=== PATIENT | female | born 1980 ===

== ENCOUNTER 2023-06-18 12:45 | Inpatient (IN) | payer OTHER ==
[~2023-06-18] VITALS: Ht 162.6 cm; Wt 95.3 kg
[2023-06-18 14:56] LABS: HEMATOCRIT 35.4 % (36.0-45.00); HEMOGLOBIN 11.6 g/dL (12.0-15.00); MEAN CELL VOLUME 83.7 fL (80.00-100.00); MEAN CORPUSCULAR HEMOGLOBIN 27.5 pg (27.00-32.0); MEAN CORPUSCULAR HGB CONC 32.9 g/dl (32.0-36.0); PLATELET COUNT 243 K/uL (150-450); RED BLOOD COUNT 4.22 M/uL (4.00-6.00); RED CELL DISTRIBUTION WIDTH 13.2 % (11.5-14.5)
[2023-06-18 15:25] LABS: INR < 0.93; PARTIAL THROMBOPLASTIN TIME 28.2 SECONDS (22.0-34.0); PROTHROMBIN TIME 9.6 SECONDS (9.0-11.5)
[2023-06-18 15:37] LABS: ALBUMIN 2.9 gm/dL (3.4-5.0); BILIRUBIN TOTAL 0.23 mg/dL (0.3-1.2); CALCIUM 9.5 mg/dL (8.5-10.1); CREATININE SERUM 0.48 mg/dL (0.55-1.02); GFR 140.5; GLOBULINA 4.1 G/DL (2.4-3.5); POTASSIUM 4.8 mEq/L (3.5-5.1)
[2023-06-18 15:37] LABS: URINE APPEARANCE Turbid; URINE BILIRRUBIN Negative (NEGATIVE); URINE BLOOD Negative; URINE COLOR Yellow; URINE GLUCOSE Negative (NEGATIVE); URINE LEUKOCYTE Trace; URINE NITRATE Negative; URINE PROTEIN Negative (NEGATIVE)
[2023-06-18 15:40] LABS: URINE BACTERIA 1893.7 uL (0.0-1933); URINE EPITHELIAL CELLS 122.1 uL (0.0-38.8); URINE RBC 20.9 uL (0.0-20.8); URINE WBC 19.4 uL (0.0-23.2)
[2023-06-23] MEDS ORDERED: CEFAZOLIN SODIUM 1,000 MG VIAL IV SCH (08:00)
[2023-06-23 08:13] LABS: URINE APPEARANCE Clear; URINE BILIRRUBIN Negative (NEGATIVE); URINE BLOOD Trace; URINE COLOR Yellow; URINE GLUCOSE Negative (NEGATIVE); URINE LEUKOCYTE Negative; URINE NITRATE Negative; URINE PROTEIN Negative (NEGATIVE); URINE UROBILINOGEN 0.2 E.U./dl
[2023-06-23 08:15] LABS: HEMATOCRIT 35.3 % (36.0-45.00); HEMOGLOBIN 11.5 g/dL (12.0-15.00); MEAN CELL VOLUME 82.9 fL (80.00-100.00); MEAN CORPUSCULAR HEMOGLOBIN 26.9 pg (27.00-32.0); MEAN CORPUSCULAR HGB CONC 32.4 g/dl (32.0-36.0); PLATELET COUNT 229 K/uL (150-450); RED BLOOD COUNT 4.26 M/uL (4.00-6.00); RED CELL DISTRIBUTION WIDTH 13.5 % (11.5-14.5)
[2023-06-23] MEDS ORDERED: RINGERS SOLUTION,LACTATED 1,000 ML IV SCH (08:15)
[2023-06-23] MEDS ORDERED: ERYTHROMYCIN BASE 1 GM TUBE OP ONE (08:15)
[2023-06-23] MEDS ORDERED: OXYTOCIN 10 UNITS/ML VIAL IV ONE (08:15)
[2023-06-23 08:16] LABS: URINE BACTERIA 1321.6 uL (0.0-1933); URINE RBC 14.2 uL (0.0-20.8); URINE WBC 5.4 uL (0.0-23.2)
[2023-06-23] MEDS ORDERED: ERYTHROMYCIN BASE 3.5 GM OINT...G. OP ONE (08:26)
[2023-06-23 08:42] LABS: ALBUMIN 2.9 gm/dL (3.4-5.0); BILIRUBIN TOTAL 0.3 mg/dL (0.3-1.2); CREATININE SERUM 0.56 mg/dL (0.55-1.02); GFR 117.6; GLOBULINA 3.9 G/DL (2.4-3.5); INR < 0.93; PARTIAL THROMBOPLASTIN TIME 28.2 SECONDS (22.0-34.0); POTASSIUM 4.1 mEq/L (3.5-5.1); PROTHROMBIN TIME 9.8 SECONDS (9.0-11.5); TOTAL PROTEIN 6.8 gm/dL (6.4-8.2)
[2023-06-23] MEDS ORDERED: OBSTETRIX ONE1 EAC1 PO (08:46)
[2023-06-23] MEDS ORDERED: THROMBIN,HU/FIBRINOGEN/CALCIUM 10 ML SYRINGE TOP ONE ×2 (10:24→10:30)
[2023-06-23] MEDS ORDERED: PROMETHAZINE HCL 50 MG/ML AMPUL IV SCH (12:30)
[2023-06-23] MEDS ORDERED: MEPERIDINE HCL/PF 50 MG/ML VIAL IV SCH (12:30)
[2023-06-23] MEDS ORDERED: KETOROLAC TROMETHAMINE 60 MG VIAL IM ONE (12:30)
[2023-06-23 12:38] LABS: BASE EXCESS -5.5 mmol/l; BICARBONATE 21.9 mmol/l (23-25); SaO2 31.8 %; Tco2 23.4 mmol/l; o2 21 %
[2023-06-23] MEDS ORDERED: PROMETHAZINE HCL 50 MG/ML AMPUL ONE (13:08)
[2023-06-23 15:13] LABS: HEMATOCRIT 34.8 % (36.0-45.00); HEMOGLOBIN 11.2 g/dL (12.0-15.00); MEAN CELL VOLUME 83.4 fL (80.00-100.00); MEAN CORPUSCULAR HEMOGLOBIN 26.9 pg (27.00-32.0); MEAN CORPUSCULAR HGB CONC 32.3 g/dl (32.0-36.0); PLATELET COUNT 218 K/uL (150-450); RED BLOOD COUNT 4.18 M/uL (4.00-6.00); RED CELL DISTRIBUTION WIDTH 13.4 % (11.5-14.5)
[2023-06-24] MEDS ORDERED: OxyCODONE HCL/APAP UD (PERCOCET) PO SCH (07:00)
[2023-06-24] MEDS ORDERED: DOCUSATE CALCIUM 240 MG CAPSULE PO SCH (09:00)
[2023-06-24] MEDS ORDERED: SIMETHICONE 125 MG CAPSULE PO SCH (09:00)
[2023-06-25] MEDS ORDERED: HYDROCORTISONE 1% 29 G TUBE TOP SCH (09:00)
[2023-06-25] MEDS ORDERED: CLOTRIMAZOLE 30 GM TUBE TOP SCH (09:00)
[2023-06-25] MEDS ORDERED: ACETAMINOPHEN 500 MG GEL..CAP PO SCH (19:28)
[2023-06-25] MEDS ORDERED: MINERAL OIL 30 ML BLIST.PACK PO ONE (19:45)
[2023-06-25] MEDS ORDERED: BISACODYL 10 MG/SUPP.RECT SUPP.RECT RECTAL ONE (19:45)
[2023-06-25] MEDS ORDERED: MAGNESIUM HYDROXIDE 30 ML BLIST.PACK PO ONE (19:45)
[2023-06-25] MEDS ORDERED: IBUprofen 800 MG TABLET PO SCH (21:00)
[2023-06-26] MEDS ORDERED: BISACODYL 10 MG/SUPP.RECT SUPP.RECT RECTAL ONE ×2 (09:00→10:15)
[2023-06-26] MEDS ORDERED: MINERAL OIL 30 ML BLIST.PACK PO ONE ×2 (09:00→10:15)
[2023-06-26] MEDS ORDERED: MAGNESIUM HYDROXIDE 30 ML BLIST.PACK PO ONE ×2 (09:00→10:15)
[2023-06-26] MEDS ORDERED: COLACE100 MG PO (13:13)
[2023-06-26] MEDS ORDERED: IBU800 MG PO (13:13)
[2023-06-26] MEDS ORDERED: SIMETHICONE125 M1 PO (13:14)
== END 2023-06-26 14:30 | disposition home or self-care (01) | DRG 785 ==
LOC: LDR 06-23 07:31 → OB/GYN 06-23 07:31 → O/R 06-23 10:56 → OB/GYN 06-23 11:51
PROVIDERS: ADMIT Specialist; ATTEND Specialist
PROC: 4A1HXCZ Monitoring of Products of Conception, Cardiac Rate, External Approach (ICD-10-PCS; 2023-06-23)
PROC: 10D00Z1 Extraction of Products of Conception, Low, Open Approach (ICD-10-PCS; principal; 2023-06-24)
PROC: 0UB70ZZ Excision of Bilateral Fallopian Tubes, Open Approach (ICD-10-PCS; 2023-06-24)
PROC: 0DNW0ZZ Release Peritoneum, Open Approach (ICD-10-PCS; 2023-06-24)
DX: O98.42 Viral hepatitis complicating childbirth (principal); B18.2 Chronic viral hepatitis C; O99.892 Other specified diseases and conditions complicating childbirth; N73.6 Female pelvic peritoneal adhesions (postinfective); Z3A.39 39 weeks gestation of pregnancy; Z37.0 Single live birth; Z30.2 Encounter for sterilization